=== PATIENT | female | born 1980 | race Caucasian/White ===

== ENCOUNTER 2018-05-27 09:54 | Outpatient (REF) | payer MEDICAID, SELFPAY ==
[2018-05-27 14:06] LABS: TSH (W/Ref FT4) 2.97 uIU/mL (0.358-3.74)
== END 2018-05-27 10:14 ==
LOC: NCHCN 09:54
PROVIDERS: PCP Family Medicine; Visit Provider Nurse Practitioner
DX: R53.83 Other fatigue (principal)
CPT/HCPCS: 84443

== ENCOUNTER 2020-03-09 08:31 | Day surgery (SDC) | payer MEDICAID, SELFPAY ==
[2020-03-09 08:39] VITALS: BP 143/89; PULSE 105; RESP 20; TEMP 37; O2SAT 99
--- NOTE | 2020-03-09 08:44 | W.ED.GENAD ---
Discharge Plan Disposition Patient Disposition: [facility] INPATIENT Condition: Good Discharge Details Clinical Impression: Perirectal abscess Attending Provider: Fern Owusu Primary Care Provider: Lydia Milsl ED Provider: Swati Gutiérrez Discharge Data Discharge Date/Time-TO BE ENTERED AT DEPARTURE: 03/09/20 11:35 Medical Decision Making <Amrit Webb DO - Last Filed: 03/09/20 22:56> 40-year-old female with a past medical history of appendectomy and tubal ligation presents today for evaluation of vaginal pain. Patient states that 1 week ago she had sensation of a right vaginal pressure mass with achy pain. She is felt that this is increased over the last few days. She does a lot of heavy lifting at work. She has also noticed a scant amount of blood in the rectal region. She denies any significant vaginal discharge, she does admit that her urine is slightly more mucoid than normal, however she denies any dysuria or urinary symptoms otherwise. She denies any abdominal pain nausea vomiting or diarrhea. She denies any other previous surgeries or complications in that area. No other complaints at this time. No other modifying factors. Physical exam demonstrates exquisite pain in the vaginal vault and the posterior right aspect. There appears to be a firm mass on palpation. Pain was notably intense, and rectal exam was not able to be performed secondary to this. Differential at this time includes perirectal or perivaginal abscess, less likely cyst/cystocele, or other abnormality. Will get CT scan for further evaluation, blood work. Patient is refusing morphine currently. Will give Tylenol Motrin. [address] scan results have returned, discussed with radiology, there does appear to be a mass/abscess-like entity anterior to the rectum, and posterior to the vaginal vault, uncertain as to where the site of origin is. Certainly could be a perirectal abscess causing the mass-effect and pain. Patient does admit to mild pain with bowel movements. White count slightly elevated at 14, discussed the case with Dr. Lee of surgery. She will come and evaluate the patient. <Swati Gutiérrez DO - Last Filed: 03/09/20 11:08> 1045 --please see Dr. Webb's note for initial presentation, exam and plan. Case endorsed to follow-up with surgery regarding plan. Patient was evaluated by Dr. Owusu at bedside and plan is to take patient for the OR for suspected perirectal abscess. HPI <Amrit Webb DO - Last Filed: 03/09/20 22:56> General Date/Time Provider Initiated Documentation: 03/09/20 08:33. HPI Narrative: 40-year-old female with a past medical history of appendectomy and tubal ligation presents today for evaluation of vaginal pain. Patient states that 1 week ago she had sensation of a right vaginal pressure mass with achy pain. She is felt that this is increased over the last few days. She does a lot of heavy lifting at work. She has also noticed a scant amount of blood in the rectal region. She denies any significant vaginal discharge, she does admit that her urine is slightly more mucoid than normal, however she denies any dysuria or urinary symptoms otherwise. She denies any abdominal pain nausea vomiting or diarrhea. She denies any other previous surgeries or complications in that area. No other complaints at this time. No other modifying factors. She does admit to mild pain with defecation. Related Data Home Medications Medication Instructions Recorded Confirmed amoxicillin-pot clavulanate 1 tab PO BID #14 tab 03/09/20 [Augmentin] fluoxetine 20 mg PO DAILY 03/09/20 03/09/20 hydrocodone 5 mg-acetaminophen 325 1 - 2 tab PO Q6H PRN #20 tab MDD 4 03/09/20 mg tablet ibuprofen 600 mg PO TID PRN 03/09/20 03/09/20 Previous Rx's Medication Instructions Recorded amoxicillin-pot clavulanate 1 tab PO BID #14 tab 03/09/20 [Augmentin] hydrocodone 5 mg-acetaminophen 325 1 - 2 tab PO Q6H PRN #20 tab MDD 4 03/09/20 mg tablet Allergies Allergy/AdvReac Type Severity Reaction Status Date / Time codeine AdvReac Other (See Unverified 03/09/20 08:43 Comment) 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 Pressure and pain and feeling of lump' on distal ant vaginal wall. ? urethocele. 05/26/13 referral to Urology for further eval. Surgical History Appendectomy ruptured Ligation of fallopian tube 2007-Dr Solomon Social History Smoking/Tobacco Use Status: Current every day Tobacco Type: cigarettes Alcohol Intake: current Alcohol Intake frequency: a few times a week Drug use: Never Substance use type: does not use Do you feel safe at home: Yes Do you feel safe in your relationship?: Yes Exam <Amrit Webb DO - Last Filed: 03/09/20 22:56> Narrative Exam Narrative: 1.Const: Well-nourished, Well-developed, appearing stated age 2.Eyes: PERRL, no conjunctival injection, and symmetrical lids. 3.ENT: Atraumatic external nose and ears. Moist MM. Neck: Symmetric, trachea midline, No thyromegaly. 4.CVS: +S1/S2, No murmurs or gallops. Peripheral pulses 2+ and equal in all extremities. Brisk capillary refill in all extremities. 5.RESP: Unlabored respiratory effort. Clear to auscultation bilaterally. No wheezes rales or rhonchi 6.GI: Soft, Nontender/Nondistended, No hepatosplenomegaly. No guarding or rebound. No pain at McBurney's point, negative Schmidt sign. Vaginal exam: Exam was performed with female nurse Tara at bedside, vaginal exam demonstrates exquisite tenderness with palpation/digital exam. Unable to tolerate speculum exam. Appears to be firmness in the posterior/right side of the vaginal vault the proximal component. No mass in the labia bilaterally. Rectal exam was deferred secondary to generalized pain after initial vaginal exam. No gross blood or discharge noted. 7.MSK: Normocephalic/Atraumatic, Extremities w/o deformity or ttp No cyanosis or clubbing, Normal movement of all extremities 8.Skin: Warm, Dry. No rashes or lesions. 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 Sensation grossly intact, no focal neurologic deficits. 10.Psych: (AAO) x3. Appropriate mood and affect Course <Amrit Webb DO - Last Filed: 03/09/20 22:56> Vital Signs Vital signs: Vital Signs Temperature 37 C 03/09/20 08:39 Pulse 105 H 03/09/20 08:39 Respiratory Rate 20 03/09/20 08:39 Blood Pressure 143/89 H 03/09/20 08:39 Pulse Oximetry 99 03/09/20 08:39 Temperature 37 C 03/09/20 08:39 Temperature Source Skin 03/09/20 08:39 Pulse 105 H 03/09/20 08:39 Respiratory Rate 20 03/09/20 08:39 Blood Pressure 143/89 H 03/09/20 08:39 Blood Pressure Position Sitting 03/09/20 08:39 Pulse Oximetry 99 03/09/20 08:39 Oxygen Delivery Method Room Air 03/09/20 08:39 Oxygen Flow Rate 0 03/09/20 08:39 Pain Level 6 03/09/20 08:39 Sign Out <Amrit Webb DO - Last Filed: 03/09/20 22:56> Sign Out Data: Sign Out Comment: Pending surgical evaluation for potential surgical intervention suspect abscess Last updated by Amrit Webb DO at 03/09/20 10:50
[2020-03-09] MEDS: Acetaminophen 500 MG TAB 1000 MG PO (09:10)
[2020-03-09] MEDS: Ketorolac 30 MG/ML VIAL IM (09:11)
[2020-03-09] MEDS: Ondansetron 4 MG/2 ML VIAL IVP (09:11)
[2020-03-09] MEDS: Normal Saline 1,000 ML 1000 ML IV (09:11)
[2020-03-09 09:13] LABS: Abs Immature Grans 0.09 10^3/uL (0.0-0.06); Absolute Basophil Count 0.04 10^3/uL (0.0-0.2); Basophils % 0.3; Eosinophils % 1.4; HCT 42.4 % (36.0-46.0); HGB 14.1 g/dL (11.2-15.7); Immature Grans % 0.6; Lymphocytes % 14.5; MCH 32.9 pg (27.0-33.0); MCHC 33.3 % (32.0-36.0); MCV 98.8 fL (80-95); Monocytes % 7.2; Nucleated RBC 0 %; Platelet Count 295 10^3/uL (130-400); RBC 4.29 10^6/uL (3.93-5.22); RDW 11.7 % (11.7-14.6); RDW-SD 42.4 fL; WBC 14.64 10^3/uL (4.4-10.8)
[2020-03-09 09:14] LABS: Absolute Lymphocyte Count 2.12 10^3/uL (1.2-3.4); Absolute Monocyte Count 1.05 10^3/uL (0.1-0.8); Absolute Neutrophil Count 11.13 10^3/uL (1.2-6.7)
[2020-03-09 09:26] LABS: ALT 44 U/L (14-59); AST 15 U/L (15-37); Albumin 3.5 g/dL (3.4-5.0); Alkaline Phosphatase 116 U/L (46-116); Anion Gap 9.1 mmol/L (3-11); BUN 13 mg/dL (7-18); Bilirubin, Total 0.6 mg/dL (0.2-1.0); CO2 27.9 mmol/L (21.0-32.0); Calcium 9.1 mg/dL (8.5-10.1); Chloride 100 mmol/L (98-107); Glucose 118 mg/dL (74-106); Potassium 3.8 mmol/L (3.5-5.1); Sodium 137 mmol/L (136-145); Total Protein 7.5 g/dL (6.4-8.2)
[2020-03-09] MEDS: Normal Saline - Diluent 50 ML VIAL IV (09:28)
[2020-03-09] MEDS: Omnipaque 350 MG/ML 100 ML BTL IJ (09:29)
--- NOTE | 2020-03-09 09:30 | DI.CT_ITS ---
EXAM: CT ABDOMEN PELVIS W CLINICAL HISTORY: vaginal pain, right side, mass, tender. TECHNIQUE: Imaging Protocol: Axial computed tomography images with coronal and sagittal reformatted images were created and reviewed CONTRAST MATERIAL: Intravenous: Omnipaque 350 Contrast volume:100 Oral: / no COMPARISON: No exams were available for comparison FINDINGS: ABDOMEN: Lung Bases: Normal where visualized. Liver: Enlarge with fatty infiltration.. No measurable mass. Gallbladder and biliary tract: No radiodense calculus or dilation. Pancreas: Normal density, no abnormal calcifications or inflammatory process. Spleen: Normal. Kidneys: Normal size, contour and axis. Tiny nonobstructing stone near the lower pole of the right k idney. No obstructive uropathy. No masses seen. Adrenal glands: No masses seen. Abdominal Aorta: Abdominal portion non-dilated. PELVIS: Bladder: Symmetric distention, no gross wall thickening. Bowel: No obstruction or bowel wall thickening. Peritoneal cavity: No ascites, collection or mesenteric inflammatory response. Bones: Within normal limits. Reproductive organs: Within normal limits. Lymph nodes: Unremarkable. There is a low-density collection measuring 3.5 by 1.9 by 2.6 cm located between or involving the pam s and lower vagina. The appearance is consistent with an abscess. There is surrounding soft tissue edema. Impression: 3.5 centimeter abscess involving the lower vaginal wall which could arise from the anus. RADIATION DOSE DELIVERED: 1,293.18mGy.cm Total DLP DATA REPOSITORY: All CT scans at this facility are submitted to the National Radiology Data Registry (NRDR) Dose Index Registry (DIR) with the [employer] (ACR). RADIATION OPTIMIZATION: All CT scans at this facility use at least one of these dose optimization te chniques: automated exposure control; mA and/or kV adjustment per patient size (includes targeted exa ms where dose is matched to clinical indication); or iterative reconstruction.
[2020-03-09 10:25] VITALS: BP 124/66; PULSE 80; RESP 19; TEMP 37.2; O2SAT 95
--- NOTE | 2020-03-09 11:05 | W.PM.HP.N ---
Date of service: 03/09/20 Time of Service: 11:05 Assessment and Plan Assessment and plan (1) Perirectal abscess: Status: Acute Assessment and plan: I advised incision and drainage under anesthesia. The risks of infection, bleeding, recurrence, fistula discussed. The wound will be packed open. She agrees to proceed. History of Present Illness Narrative: This 40-year-old woman presents with perineal pain for the last week. This is worsened by sitting and activity. Also hurts to have a bowel movement. She has no fevers. She does report some bright red rectal bleeding over the past 6 months. She presented to the emergency department today where CT scan of the pelvis showed an abscess between the rectum and vagina. Patient denies prior perirectal abscess. Her bowels function well. Review of Systems All systems reviewed & are unremarkable except as noted in HPI and below PFSH Medical History Anxiety disorder 2007 - Prozac Vaginal pain Onset 03/2013. Pressure and pain and feeling of lump' on distal ant vaginal wall. ? urethocele. 05/26/13 referral to Urology for further eval. Surgical History Appendectomy ruptured Ligation of fallopian tube 2007-Dr Solomon Social History Smoking/Tobacco Use Status: Current every day Tobacco Type: cigarettes Alcohol Intake: current Alcohol Intake frequency: a few times a week Drug use: Never Substance use type: does not use Do you feel safe at home: Yes Do you feel safe in your relationship?: Yes Meds Home Medications and Allergies Home Medications Medication Instructions Recorded Confirmed Type fluoxetine 20 mg PO DAILY 03/09/20 03/09/20 History ibuprofen 600 mg PO TID PRN 03/09/20 03/09/20 History Allergies Allergy/AdvReac Type Severity Reaction Status Date / Time codeine AdvReac Other (See Unverified 03/09/20 08:43 Comment) Exam Narrative Exam Narrative: Appears uncomfortable Heart RRR Lungs CTA Perineal exam reveals tender area anterior/right of the anal opening. No visible abscess. Results Labs Result diagrams: 03/09/20 08:50 03/09/20 08:50 Labs: Laboratory Results - last 24 hr 03/09/20 03/09/20 08:50 08:50 WBC 14.64 H RBC 4.29 Hgb 14.1 Hct 42.4 MCV 98.8 H MCH 32.9 MCHC 33.3 RDW 11.7 Plt Count 295 MPV 10.0 Immature Gran % 0.6 Neutrophils % 76.0 Lymphocytes % 14.5 Monocytes % 7.2 Eosinophils % 1.4 Basophils % 0.3 Nucleated RBC % 0 Absolute Neutrophils 11.13 H Absolute Lymphocytes 2.12 Absolute Monocytes 1.05 H Absolute Eosinophils 0.20 Absolute Basophils 0.04 Sodium 137 Potassium 3.8 Chloride 100 Carbon Dioxide 27.9 Anion Gap 9.1 BUN 13 Creatinine 0.90 Estimated GFR/1.73 m2 >= 60.00 Glucose 118 H Calcium 9.1 Total Bilirubin 0.6 AST 15 ALT 44 Alkaline Phosphatase 116 Total Protein 7.5 Albumin 3.5 Last Vital Signs Temp 99.0 F 03/09/20 10:25 Pulse 80 03/09/20 10:25 Resp 19 03/09/20 10:25 BP 124/66 03/09/20 10:25 Pulse Ox 95 03/09/20 10:25 COVID-19 Screening Have you,or household,traveled outside [place] in last 14 days?: No Had IN PERSON contact w/suspected or confirmed C-19 person: No
[2020-03-09] MEDS: Lactated Ringers 1,000 ML 30 ML IV (11:46)
--- NOTE | 2020-03-09 12:33 | W.PM.DSUDISC ---
Discharge Plan Disposition Patient Disposition: HOME Condition: Good Discharge Details Reason For Visit: Incision and drainage of perirectal abscess Attending Provider: Fern Owusu Primary Care Provider: Lydia Mills Home Meds and New Rx's Prescriptions: New amoxicillin-pot clavulanate [Augmentin] 875-125 mg tablet 1 tab PO BID Qty: 14 RF: 0 Continued ibuprofen 600 mg Tablet 600 mg PO TID PRNRF: 0 fluoxetine 20 mg capsule 20 mg PO DAILY RF: 0 Discharge Instructions Additional Instructions: The wound is packed with a strip of gauze. This can be removed tomorrow. It works best to get the strip wet in the shower and then remove. The water from the shower can run into the wound. Keep a pad in your underwear as some drainage is expected. Change the top dressing as needed tonight. Some bleeding is expected. Call for any concerns including fever, increased pain. Do not drive if on narcotic pain meds or if limited by pain. May use Tylenol alternating with ibuprofen for pain control. Ice is also an option. The maximum dose for Tylenol is 4000 mg/day. May use ibuprofen 800 mg every 8 hours as needed. If concerned about constipation, you may use a stool softener or milk of magnesia. Referrals: Fern Owusu MD [ [facility] STAFF PHYSICIAN] - (Return on Sunday for a postop check) Activity:: Activity as Tolerated Remove Dressings/Wound Care:: 24 hours Shower/Bathe:: 24 hours Diet:: As Tolerated Discharge Orders Discharge Orders: Discharge Order (Routine); Ordered 03/09/20 Ordered By: Fern Owusu DS: Diagnosis Discharge Diagnosis (1) Perirectal abscess: Status: Acute
--- NOTE | 2020-03-09 12:40 | W.PM.OP ---
Date of service: 03/09/20 Time of Service: 12:40 Operative Note Operative Note DATE OF PROCEDURE: 03/09/20 PRE-OP DIAGNOSIS: Perirectal abscess POST-OP DIAGNOSIS: same PROCEDURE: Incision and drainage deep perirectal abscess SURGEON: Fern Owusu ANESTHESIA: local and spinal Indications: This 40-year-old woman presented with a week of pain in the perineum. CT scan of the abdomen and pelvis showed a 3-1/2 cm abscess located between the rectum and vagina. Procedure Description: The patient had a spinal anesthetic placed and then was positioned into stirrups. Her perineum was prepped and draped sterilely. Palpation in the vagina revealed a abscess located slightly to the right between the vagina and rectum. Digital rectal examination revealed no obvious masses and confirmed the abscess. An 18-gauge needle was used to access the abscess from the right side of the perineum. Several cc of pus were aspirated which was sent for culture. I then made an incision along the needle using this as a guide. I did not really enter a significant pocket this way. The abscess seemed to be located between the [place] of the rectum and vagina and I did not want to cause any trauma to either structure. There was a small residual pocket that I aspirated completely by the vaginal wall with a 18-gauge needle. The small incision on the right perineum was packed with half-inch gauze. She tolerated the procedure well and was stable to recovery
[2020-03-09 13:16] VITALS: BP 106/55; PULSE 70; RESP 16; TEMP 36.3; O2SAT 99
[2020-03-09 13:31] VITALS: BP 122/84; PULSE 76; RESP 18; TEMP 36.5; O2SAT 98
[2020-03-09 14:50] VITALS: BP 139/83; PULSE 98; RESP 16; TEMP 36.8; O2SAT 96
== END 2020-03-09 15:10 | disposition home or self-care (01) ==
LOC: ER 11:08 → DSU 11:34 → SUR 13:01
PROVIDERS: Student in an Organized Health Care Education/Training Program; Emergency Provider Physician Assistant; PCP Nurse Practitioner; Visit Provider Surgery
PROC: (CPT 46040; principal; 2020-03-09 09:00)
DX: K61.1 Rectal abscess (principal); F17.210 Nicotine dependence, cigarettes, uncomplicated; F41.9 Anxiety disorder, unspecified
CPT/HCPCS: 46040; 36415; 80053; 87077; 96361; 96374; 96375; 99222; 99285; 74177; 81003; 85025; 87070; 87075; 87186; 87205; J0690; J1885; J2250; J2405; J3490

== ENCOUNTER 2020-07-01 14:58 | Outpatient (REF) | payer MEDICAID, SELFPAY ==
--- NOTE | 2020-07-01 14:00 | PAPFT_PTH ---
PATIENT: Wagner Cardoza LOC: [facility] U#:[id number] AGE/SX: 40/F ROOM: RE07/01/[address]: MATI Luevano : 1980 BED: DIS: 07/01/2020 SPEC #: [id number] RECD: 07/01/20 17:53 STATUS: SHAE REGala #: [id number] YANIAR: 07/01/20 14:[address]: Tara Veras DEPT: [facility] Cytology RECD BY: Shannon Riley ENTERED: 07/01/20 17:53 SP TYPE: PAPFT OTHR DR: Lydia Mills Tissues: 1 - CX/ENDOCX FOR PAP SMEARS Procedures: PAP THIN PREP/UVM Screening HPV DNA PROBE Comments: [id number]
== END 2020-07-01 14:59 | disposition home or self-care (01) ==
LOC: LBN 14:58
PROVIDERS: PCP Nurse Practitioner; Visit Provider Nurse Practitioner Family
DX: Z12.4 Encounter for screening for malignant neoplasm of cervix (principal); Z11.51 Encounter for screening for human papillomavirus (HPV)
CPT/HCPCS: 88142; 87624

== ENCOUNTER 2021-03-27 14:42 | Emergency (ER) | payer MEDICAID, SELFPAY ==
[2021-03-27 14:55] VITALS: BP 128/85; PULSE 82; RESP 18; TEMP 37.2; O2SAT 97
--- NOTE | 2021-03-27 15:15 | DI.RAD_ITS ---
Exam(s) XR ANKLE RT COMPLETE EXAM: XR ANKLE RT COMPLETE CLINICAL HISTORY: lateral pain after rotational injury last night TECHNIQUE: COMPARISON: No exams were available for comparison FINDINGS: Three views were obtained. The ankle mortise is well maintained. There is no evidence of fracture o r dislocation. IMPRESSION: RADIATION DOSE DELIVERED: Total DLP
--- NOTE | 2021-03-27 15:15 | W.ED.GENAD ---
Discharge Plan Disposition Patient Disposition: HOME Condition: Good Discharge Details Clinical Impression: Ankle sprain Primary Care Provider: Lydia Mills ED Provider: Seema Tony Home Meds and New Rx's Prescriptions: Continued ibuprofen 600 mg Tablet 600 mg PO TID PRNRF: 0 fluoxetine 20 mg capsule 20 mg PO DAILY RF: 0 Discharge Instructions Instructions: Ankle Sprain (ED) Additional Instructions: Your x-ray is reassuring here today. No evidence of fracture or dislocation. Please encourage rest, ice, elevation. Tylenol and ibuprofen as needed for discomfort. I am concerned that you have a sprain. Please continue with ankle brace to help stability, swelling and discomfort. Please begin the ankle exercises discussed, in particular the alphabet exercises. Please follow-up with primary care for reevaluation in 2 weeks. If you develop any new or worsening symptoms please seek care urgently once again. Referrals: Lydia Mills [Primary Care Provider] - Discharge Data Discharge Date/Time-TO BE ENTERED AT DEPARTURE: 03/27/21 16:13 Medical Decision Making Patient is a pleasant 40-year-old female presenting today with chief complaint of right ankle pain. She reports that last night she slipped when going down a frosted ramp. Suffered an internal rotational injury. Denies other significant injuries from the incident. Did not strike her head or lose consciousness. States that she has had multiple other rotational injuries to this ankle historically. On exam, patient appears nontoxic. She is tender left leg over the lateral malleolus. She does have some swelling to this area, no discoloration. Neurovascularly intact. No pain with palpation about the foot, particularly over the midfoot or the proximal metatarsal tarsal. No pain with palpation over the proximal fibula. Patient took NSAIDs prior to arrival, will augment with Tylenol. Will obtain x-ray to evaluate for any potential bony abnormality. X-ray read by radiologist: FINDINGS: Three views were obtained. The ankle mortise is well maintained. There is no evidence of fracture or dislocation. IMPRESSION: Diagnosed with ankle sprain. Encourage rest, ice, elevation. Tylenol and ibuprofen as needed for discomfort. Will place in a lace up ankle brace to help with stabilization. Ankle exercises were discussed. Return precautions discussed. Advise follow-up with primary care in 2 weeks for reevaluation. All of her questions and concerns were addressed and she is in agreement this plan. HPI General Mode of arrival: wheelchair. Date/Time Provider Initiated Documentation: 03/27/21 15:15. Limitations to Documentation: no limitations. Information obtained by: patient, family and RN notes reviewed. History of Present Illness 41 year old F presents to the emergency department with the chief complaint of right ankle pain, described as moderate and similar to prior episodes, Quality is described as aching, and is localized to the right and lower extremity. Patient reports no radiation. Patient started experiencing this day(s) (1) and it has been constant. Immobilization improves symptom(s), Movement worsens symptoms . Patient notes no other symptoms.. Patient did receive the following treatments prior to arrival, NSAID Related Data Home Medications Medication Instructions Recorded Confirmed fluoxetine 20 mg PO DAILY 03/09/20 03/27/21 ibuprofen 600 mg PO TID PRN 03/09/20 03/27/21 Allergies Allergy/AdvReac Type Severity Reaction Status Date / Time codeine AdvReac Other (See Verified 03/27/21 14:59 Comment) General Stated Complaint: Orthopedic SARAH: 4 Review of Systems Constitutional Constitutional: Reports as per HPI, Denies chills, Denies fever(s) and Denies weakness Musculoskeletal Musculoskeletal: Reports as per HPI and Denies tingling Integumentary/Breasts Skin/Breast: Reports as per HPI, Denies rash and Denies wounds Neurologic Neurologic: Reports as per HPI, Denies tingling, Denies paresthesias and Denies weakness [facility] Medical History Anxiety disorder 2007 - Prozac Vaginal pain Onset 03/2013. Pressure and pain and feeling of lump' on distal ant vaginal wall. ? urethocele. 05/26/13 referral to Urology for further eval. Surgical History Appendectomy ruptured Ligation of fallopian tube 2007-Dr Solomon Family History Mother Rheumatoid arthritis Sister Rheumatoid arthritis Social History Smoking/Tobacco Use Status: Current every day Tobacco Type: cigarettes Smoking risk assessment performed?: Yes Alcohol Intake: current Alcohol Intake frequency: 3 or more drinks per day Drug use: Never Substance use type: does not use Do you feel safe at home: Yes Do you feel safe in your relationship?: Yes Exam Const General: cooperative, healthy appearing, comfortable, no acute distress, well developed and well groomed Nutritional Appearance: average body habitus and well nourished Orientation: alert and awake Resp Effort & Inspection: normal respiratory effort, able to speak in complete sentences and no respiratory distress Cardio Rate: regular rate Rhythm: regular rhythm Skin General skin exam: no rashes or lesions noted Lesions: no lesions Rashes: no rashes Trauma: no lacerations or abrasions Neuro General: patient alert and patient awake Cognition: normal cognition Speech: speech normal Gait: gait abnormal (in wheelchair currently) Motor: muscle tone normal throughout Sensory Exam: no sensory deficits noted Extrem Ankle/foot/toe images: 1. Area of swelling and discomfort. No discoloration. 2+ distal pulses, intact capillary refill. Sensation intact. No pain over proximal 5th metatarsal or calcaneus. No pain over proxmial fibula. Pain maximal over lateral mallelus. Mild discomfort over ATFL. Pain posterior to lateral malleolus. Achilles feels intact, normal Portillo test. Psych Appearance: grossly normal and well kempt Mental Status: mental status grossly normal Speech and Movement: speech and movement normal Course Vital Signs Vital signs: Vital Signs Temperature 37.2 C 03/27/21 14:55 Pulse 82 03/27/21 14:55 Respiratory Rate 18 03/27/21 14:55 Blood Pressure 128/85 03/27/21 14:55 Pulse Oximetry 97 03/27/21 14:55 Temperature 37.2 C 03/27/21 14:55 Temperature Source Oral 03/27/21 14:55 Pulse 82 03/27/21 14:55 Respiratory Rate 18 03/27/21 14:55 Respiratory Effort Non-Labored 03/27/21 15:01 Blood Pressure 128/85 03/27/21 14:55 Blood Pressure Position Sitting 03/27/21 14:55 Pulse Oximetry 97 03/27/21 14:55 Oxygen Delivery Method Room Air 03/27/21 14:55 Oxygen Flow Rate 0 03/27/21 14:55 Pain Level 0 03/27/21 14:55 Comment 03/27/21 14:55 PAWSS Have you Been Recently Intoxicated or Drunk Within the Last 30 days?: Yes Have you Ever Experienced Previous Episodes of Alcohol Withdrawal?: No Have you ever Experienced Withdrawal Seizures?: No Have you ever Experienced Delirium Tremens(DT)s?: No Have you ever undergone Alcohol Rehabilitation Treatment (i.e, inpt ot outpatient treatment programs)?: No Have you ever Experienced Blackouts?: No Have you ever Combined Alcohol with other Downers within the last 90 days?: No Have you ever Combined Alcohol with any other Substance of Abuse during the last 90 days?: No Positive Blood Alcohol level on Presentation? [PCS.BAL]: No Evidence of Increased Autonomic Activity (i.e. HR>120, tremor, sweating, agitation, nausea)?: No Result: 1
[2021-03-27] MEDS: Acetaminophen 500 MG TAB 1000 MG PO (15:42)
--- NOTE | 2021-03-27 16:08 | DI.VRAD_ITS ---
PROCEDURE INFORMATION: Exam: XR Right Ankle Exam date and time: 03/27/2021 3:23 PM Age: 41 years old Clinical indication: Other: Lateral pain after rotation injury last night TECHNIQUE: Imaging protocol: XR Right ankle. Views: 3 or more views. COMPARISON: No relevant prior studies available. FINDINGS: Bones/joints: There is significant lateral malleolar soft tissue swelling. There may be some widening of the ankle mortise. There is no definite fracture. Suspect small joint effusion. Soft tissues: See Bones/joints finding. IMPRESSION: Soft tissue swelling with possible ligamentous injury. No evidence for fracture. Dictated and Authenticated by: Kimberley Howe MD. Ordering:TIMOTHY Stephenson MD
== END 2021-03-27 16:13 | disposition home or self-care (01) ==
PROVIDERS: Emergency Provider Physician Assistant; PCP Nurse Practitioner
DX: S93.491A Sprain of other ligament of right ankle, initial encounter (principal); X50.9XXA Other and unspecified overexertion or strenuous movements or postures, initial encounter; W10.2XXA Fall (on)(from) incline, initial encounter
CPT/HCPCS: 29515; 99283; 73610

== ENCOUNTER 2024-12-22 01:20 | Outpatient (CLI) | payer SELFPAY ==
--- NOTE | 2024-12-22 | DI.RAD_ITS ---
Exam(s) XR ELBOW LT COMPLETE EXAM: XR ELBOW LT COMPLETE CLINICAL HISTORY: PAIN LEFT ELBOW M25.522 CONTUSION 6 WEEKS AGO. TECHNIQUE: 2D digital imaging was performed of the left elbow. Three images were obtained. AP, lateral and oblique views were obtained. COMPARISON: No exams were available for comparison FINDINGS: BONES: No acute fracture is present. No bony destructive lesion is seen. There is a small spur arising from the coronoid process. JOINTS: The elbow is normally aligned. No joint effusion is seen. SOFT TISSUE: Normal. IMPRESSION: No acute abnormality. DATA REPOSITORY: RADIATION DOSE DELIVERED:
== END 2024-12-22 01:40 ==
PROVIDERS: PCP Physician Assistant; Visit Provider Physician Assistant
DX: M25.522 Pain in left elbow (principal)
CPT/HCPCS: 73080